=== PATIENT | male | born 1995 | race Caucasian/White ===

== ENCOUNTER 2017-07-09 17:43 | Observation (INO) | payer OTHER ==
[~2017-07-09] VITALS: Ht 172.7 cm; Wt 100.0 kg
[2017-07-09 17:50] VITALS: TEMP 98.4
[2017-07-09 17:55] VITALS: BP 143/80; PULSE 80; RESP 16; O2SAT 100
--- NOTE | 2017-07-09 18:01 | PD ---
HPI Chief Complaint: Fall Time Seen by Provider: 17:54 Travel History International Travel<30 days: No Contact w/Intl Traveler<30days: No Traveled to known affect area: No History of Present Illness HPI Patient was emergency department by EMS after falling approximately 8 feet off a roof landing on his left forearm. Patient complaining of pain in his left forearm that is worse with movement and palpation. Patient received 8 mg of morphine in route that seemed to help with the pain some. Pain radiates proximally. Describes pain as aching throbbing-like in nature. Patient is he feels as though there is something moving in there when he tries to move anything distally. Patient is right-hand dominant. Patient denies hitting his head, neck pain, loss of consciousness, chest pain, shortness of breath, low back pain, or lower extremity pain. PFSH Past Medical History Medical History: Denies Significant Hx Tetanus Vaccination: Unknown Influenza Vaccination: No Past Surgical History Surgical History: No Previous Surgery Social History Alcohol Use: Yes (social) Tobacco Use: No Substance Use: No Allergies-Medications (Allergen,Severity, Reaction): Coded Allergies: No Known Allergies (Unverified , 07/09/17) Reported Meds & Prescriptions Reported Meds & Active Scripts Active [place] (Hydrocodone-Acetaminophen) 5 Mg-325 Mg Tab 1 Tab PO Q4H PRN Review of Systems Except as stated in HPI: all other systems reviewed are Neg Physical Exam Narrative GENERAL: Well-developed, overly nourished, in no acute distress, and non-ill appearing. SKIN: Focused skin assessment warm and dry. HEAD: Atraumatic. Normocephalic. EYES: Pupils equal and round. EOMI. No scleral icterus. No injection or drainage. ENT: No nasal bleeding or discharge. Mucous membranes pink and moist. NECK: Trachea midline. No tenderness crepitus over midline cervical spine.. Supple. No nuclear rigidity. CARDIOVASCULAR: Regular rate and rhythm. No murmur appreciated. Radial pulses 2+, intact, equal bilaterally. Capillary refill less than 2 seconds. RESPIRATORY: No accessory muscle use. No respiratory distress. Clear to auscultation. Breath sounds equal bilaterally. No chest wall tenderness. No ecchymosis noted. GASTROINTESTINAL: Abdomen soft, non-tender, nondistended, and no guarding. Hepatic and splenic margins not palpable. Normal bowel sounds x4. No pulsatile mass. No ecchymosis noted. MUSCULOSKELETAL: Obvious deformity left forearm neurovascular intact distally.. No clubbing. No cyanosis. No edema. Decreased range of motion left upper extremity secondary to pain and obvious deformity. No tenderness or crepitus over midline line of the spinal column. NEUROLOGICAL: Awake and alert. No obvious cranial nerve deficits. Motor grossly within normal limits. Normal speech. PSYCHIATRIC: Appropriate mood and affect; insight and judgment normal. Data Data Last Documented VS Vital Signs Date Time Temp Pulse Resp B/P (MAP) Pulse Ox O2 Delivery O2 Flow Rate FiO2 07/09/17 17:55 80 16 143/80 (101) 100 Room Air 07/09/17 17:50 98.4 Orders Orders Forearm (2vws) (07/09/17 ) Splint Or Brace Apply/Monitor (07/09/17 18:42) [employer] Request For Service (07/09/17 18:42) Morphine Inj (Morphine Inj) (07/09/17 18:45) Forearm (2vws) (07/09/17 ) Consult Orthopedic (07/09/17 ) Admit Order (Ed Use Only) (07/09/17 20:01) MDM Medical Decision Making Medical Screen Exam Complete: Yes Emergency Medical Condition: Yes Interpretation(s) Last Impressions Radius/Ulna X-Ray 07/09/17 0000 Signed Impressions: CONCLUSION: There are displaced fractures through the shafts of the radius and ulna. Differential Diagnosis Fracture, sprain, contusion Narrative Course Patient was seen and examined. IV was established patient placed on cardiac monitoring. Initial radiological studies were ordered. Patient was seen and evaluated by Dr. Baron, who is in agreement plan of care and disposition. After getting x-ray. Splint was placed by [employer] reports trying to manipulate fracture and repeat x-ray was ordered. Discussed patient with orthopedic, who wants patient admitted to medicine for surgery tomorrow. Discussed patient with hospitalist was agreeable to admit the patient. Discussed all findings and plan of care with patient who is agreeable for admission. All questions were answered. Patient remained stable throughout ED course. Patient reports improvement of pain status post splint placement. Physician Communication Physician Communication [address] Florian, orthopedic on-call, who recommends admitting to medicine, n.p.o. after midnight, for surgical intervention tomorrow. [address] Tyler, who is agreeable to admit the patient. Diagnosis Primary Impression: Left forearm fracture Qualified Codes: S52.92XA - Unspecified fracture of left forearm, initial encounter for closed fracture Admitting Information Admitting Physician Requests: Admit Scripts Hydrocodone-Acetaminophen ([place]) 5 Mg-325 Mg Tab 1 TAB PO Q4H Y for PAIN, #16 TAB 0 Refills Prov: Richard Baron MD 07/09/17 Condition: Stable Rony Pinto July 09, 2017 18:01
[2017-07-09] MEDS ORDERED: NORC5TAB PO (18:44)
[2017-07-09] MEDS ORDERED: MORPHINE SULFATE 4 MG/ML INJ IV PUSH ONE (18:45)
--- NOTE | 2017-07-09 18:53 | RADRPT ---
EXAM DATE: 07/09/2017 6:41 PM EDT AGE/SEX: 22 years / Male INDICATIONS: Pain post fall. CLINICAL DATA: This is the patient's initial encounter. Patient reports that signs and symptoms have been present for 1 day and indicates a pain score of 10/10. MEDICAL/SURGICAL HISTORY: None. None. COMPARISON: No prior [facility] exams available for comparison. FINDINGS: There are displaced fractures of the shaft of both the radius and ulna. The fracture through the ulna r appears to be by approximately 1.7 cm. No definite joint dislocation is seen at the wrist or elbow. CONCLUSION: There are displaced fractures through the shafts of the radius and ulna. Electronically signed by: Armaan Velazquez MD 07/09/2017 6:52 PM EDT
--- NOTE | 2017-07-09 20:24 | RADRPT ---
EXAM DATE: 07/09/2017 8:18 PM EDT AGE/SEX: 22 years / Male INDICATIONS: Post reduction left forearm. CLINICAL DATA: This is the patient's subsequent encounter. Patient reports that signs and symptoms h ave been present for 1 day and indicates a pain score of 8/10. MEDICAL/SURGICAL HISTORY: None. None. COMPARISON: [facility] [place] FOREARM LEFT (2VWS), 07/09/2017. . FINDINGS: Patient status post closed reduction of the previously noted fractures involving the radius and ulna. There appears to be some mild improvement in the alignment of the fractures involving the radius and ulna. There continues to be displacement of the fracture involving the proximal radius. There is now overlying cast material place obscuring some bony detail. CONCLUSION: Status post closed reduction of patient's previously known fractures involving the radius and ulna. M ild improvement compared to the prior exam. Electronically signed by: Armaan Velazquez MD 07/09/2017 8:23 PM EDT
[2017-07-09 20:38] VITALS: BP 134/67; PULSE 75
[2017-07-09] MEDS ORDERED: LACTULOSE SYRUP 20 GM/30 ML CUP PO PRN (22:00)
[2017-07-09] MEDS ORDERED: MAGNESIUM HYDROXIDE SUSP 30 ML CUP PO PRN (22:00)
[2017-07-09] MEDS ORDERED: SODIUM CHLORIDE 0.9% FLUSH 10 ML FLUSH IV FLUSH PRN (22:00)
[2017-07-09] MEDS ORDERED: ACETAMINOPHEN 325 MG TAB PO PRN (22:00)
[2017-07-09] MEDS ORDERED: NALOXONE HCL 0.4 MG/ML AMP IV PUSH PRN (22:00)
[2017-07-09] MEDS ORDERED: BISACODYL 10 MG SUPP RECTAL PRN (22:00)
[2017-07-09] MEDS ORDERED: SENNOSIDES 8.6 MG TAB PO PRN (22:00)
--- NOTE | 2017-07-09 22:03 | HHI.HP ---
[facility] Service [facility] Primary Care Physician No Primary Care Physician Admission Diagnosis Left forearm fracture Diagnoses: Travel History International Travel<30 Days: No Contact w/Intl Traveler <30 Da: No Traveled to Known Affected Are: No History of Present Illness 22-year-old male with no significant past medical history presents the emergency department after falling off a roof. The patient reports he was working on his roof earlier today when he fell onto his left arm and felt a pop followed by severe pain. The patient denies any loss of consciousness or other injuries sustained during the fall. He denies chest pain or shortness of breath. No nausea/vomiting/diarrhea. No abdominal pain. Review of Systems Except as stated in HPI: all other systems reviewed are Neg Past Family Social History Past Medical History None Past Surgical History None Reported Medications Reported Meds & Active Scripts Active Allergies: Coded Allergies: No Known Allergies (Unverified , 07/09/17) Family History Negative for CAD/DM Social History Occasional alcohol. Denies tobacco and illicit drugs Physical Exam Vital Signs Vital Signs Date Time Temp Pulse Resp B/P (MAP) Pulse Ox O2 Delivery O2 Flow Rate FiO2 07/09/17 20:38 75 134/67 (89) 07/09/17 17:55 80 16 143/80 (101) 100 Room Air 07/09/17 17:50 98.4 Physical Exam GENERAL: male sitting up in bed SKIN: No rashes, ecchymoses or lesions. Cool and dry. HEAD: Atraumatic. Normocephalic. No temporal or scalp tenderness. EYES: Pupils equal round and reactive. Extraocular motions intact. No scleral icterus. No injection or drainage. ENT: Nose without bleeding, purulent drainage or septal hematoma. Throat without erythema, tonsillar hypertrophy or exudate. Uvula midline. Airway patent. NECK: Trachea midline. No JVD or lymphadenopathy. Supple, nontender, no meningeal signs. CARDIOVASCULAR: Regular rate and rhythm without murmurs, gallops, or rubs. RESPIRATORY: Clear to auscultation. Breath sounds equal bilaterally. No wheezes , rales, or rhonchi. GASTROINTESTINAL: Abdomen soft, non-tender, nondistended. No hepato-splenomegaly , or palpable masses. No guarding. MUSCULOSKELETAL: Extremities without clubbing, cyanosis, or edema. Left hand neurovascularly intact with brisk capillary refill. Left upper extremity splinted. NEUROLOGICAL: Awake and alert. Cranial nerves II through XII intact. Motor and sensory grossly within normal limits. Normal speech. Caprini VTE Risk Assessment Caprini VTE Risk Assessment: No/Low Risk (score <= 1) Caprini Risk Assessment Model Point Value = 1 Point Value = 2 Point Value = 3 Point Value = 5 Age 41-60 Minor surgery BMI > 25 kg/m2 Swollen legs Varicose veins or History of unexplained or recurrent spontaneous Oral contraceptives or hormone replacement Sepsis (< 1 month) Serious lung disease, including pneumonia (< 1 month) Abnormal pulmonary function Acute myocardial infarction Congestive heart failure (< 1 month) History of inflammatory bowel disease Medical patient at bed rest Age 61-74 Arthroscopic surgery Major open surgery (> 45 min) Laparoscopic surgery (> 45 min) Malignancy Confined to bed (> 72 hours) Immobilizing plaster cast Central venous access Age >= 75 History of VTE Family history of VTE Factor V Leiden Prothrombin [id number] Lupus anticoagulant Anticardiolipin antibodies Elevated serum homocysteine Heparin-induced thrombocytopenia Other congenital or acquired thrombophilia Stroke (< 1 month) Elective arthroplasty Hip, pelvis, or leg fracture Acute spinal cord injury (< 1 month) Prophylaxis Regimen Total Risk Factor Score Risk Level Prophylaxis Regimen 0-1 Low Early ambulation 2 Moderate Order ONE of the following: *Sequential Compression Device (SCD) *Heparin 5000 units SQ BID 3-4 Higher Order ONE of the following medications: *Heparin 5000 units SQ TID *Enoxaparin/Lovenox 40 mg SQ daily (WT < 150 kg, CrCl > 30 mL/min) *Enoxaparin/Lovenox 30 mg SQ daily (WT < 150 kg, CrCl > 10-29 mL/min) *Enoxaparin/Lovenox 30 mg SQ BID (WT < 150 kg, CrCl > 30 mL/min) AND/OR *Sequential Compression Device (SCD) 5 or more Highest Order ONE of the following medications: *Heparin 5000 units SQ TID (Preferred with Epidurals) *Enoxaparin/Lovenox 40 mg SQ daily (WT < 150 kg, CrCl > 30 mL/min) *Enoxaparin/Lovenox 30 mg SQ daily (WT < 150 kg, CrCl > 10-29 mL/min) *Enoxaparin/Lovenox 30 mg SQ BID (WT < 150 kg, CrCl > 30 mL/min) AND *Sequential Compression Device (SCD) Assessment and Plan Assessment and Plan Assessment/plan: 1. Displaced fractures of the radius and ulna Orthopedic surgery consulted, appreciate recommendations Dilaudid for pain N.p.o. Monitor for signs of compartment syndrome FEN N.p.o. Electrolytes: Monitor and replete as needed NS at 100 cc/hour Physician Certification 2 Midnight Certification Type: Admission for Inpatient Services Order for Inpatient Services The services are ordered in accordance with Medicare regulations or non- Medicare payer requirements, as applicable. In the case of services not specified as inpatient-only, they are appropriately provided as inpatient services in accordance with the 2-midnight benchmark. Estimated LOS (days): 2 2 days is the estimated time the patient will need to remain in the hospital, assuming treatment plan goals are met and no additional complications. Post-Hospital Plan: Not yet determined Ting Tyler MD July 09, 2017 22:03
[2017-07-09] MEDS ORDERED: ONDANSETRON ODT 4 MG TAB PO PRN (22:15)
[2017-07-09] MEDS: HYDROmorphone HCL PF 2 MG/ML VIAL IV PUSH PRN (23:31)
[2017-07-09] MEDS: SODIUM CHLOR 0.9% 1000 ML INJ 1,000 ML IV SCH (23:31)
[2017-07-09] MEDS: SODIUM CHLORIDE 0.9% FLUSH 10 ML FLUSH IV FLUSH SCH (23:32)
[2017-07-10] VITALS: BP 137/75; PULSE 70; RESP 18; TEMP 98.5; O2SAT 97
[2017-07-10] MEDS: HYDROmorphone HCL PF 2 MG/ML VIAL IV PUSH PRN ×2 (02:39→06:16)
[2017-07-10 05:57] LABS: AUTOMATED NEUTROPHIL # 8.2 TH/MM3 (1.8-7.7); BASOPHIL % 0.3 % (0.0-2.0); EOSINOPHIL # 0.1 TH/MM3 (0-0.4); EOSINOPHIL % 0.8 % (0.0-4.0); HEMOGLOBIN 15.1 GM/DL (13.0-17.0); LYMPH % 22.1 % (9.0-44.0); LYMPHOCYTE # 2.8 TH/MM3 (1.0-4.8); MEAN CELL VOLUME 79.6 FL (80.0-100.0); MEAN CORPUSCULAR HEMOGLOBIN 26.8 PG (27.0-34.0); MEAN CORPUSCULAR HGB CONC 33.7 % (32.0-36.0); MEAN PLATELET VOLUME 8.4 FL (7.0-11.0); MONO % 11.1 % (0.0-8.0); MONOCYTE # 1.4 TH/MM3 (0-0.9); NEUT % 65.7 % (16.0-70.0); PLATELET COUNT 306 TH/MM3 (150-450); RED BLOOD COUNT 5.65 MIL/MM3 (4.50-5.90); RED CELL DISTRIBUTION WIDTH 14.2 % (11.6-17.2); WHITE BLOOD COUNT 12.5 TH/MM3 (4.0-11.0)
[2017-07-10 06:17] LABS: BICARBONATE 24.8 MEQ/L (21.0-32.0); CALCIUM 8.5 MG/DL (8.5-10.1); CREATININE 0.8 MG/DL (0.60-1.30)
[2017-07-10] MEDS: SODIUM CHLORIDE 0.9% FLUSH 10 ML FLUSH IV FLUSH SCH (07:31)
[2017-07-10] MEDS: SODIUM CHLOR 0.9% 1000 ML INJ 1,000 ML IV SCH (07:56)
[2017-07-10 08:00] VITALS: BP 144/85; PULSE 67; RESP 15; TEMP 97.7; O2SAT 96
[2017-07-10] MEDS ORDERED: SENN187 PO (08:50)
[2017-07-10] MEDS ORDERED: NORC5TAB PO (08:50)
--- NOTE | 2017-07-10 08:50 | HHI.DS ---
Discharge Summary Admission Date July 09, 2017 at 20:03 Discharge Date: July 10, 2017 Admitting Diagnosis Left forearm fracture (1) Left arm pain ICD Code: M79.602 - Pain in left arm (2) Fracture of left radius and ulna ICD Code: S52.92XA - Unspecified fracture of left forearm, initial encounter for closed fracture; S52.202A - Unspecified fracture of shaft of left ulna, initial encounter for closed fracture Procedures Displaced left radius and ulna shaft fractures S/P Open reduction internal fixation left radius and ulna shaft fractures by Dr Valle 07/10/17 Brief History - From Admission 22-year-old male with no significant past medical history presents the emergency department after falling off a roof. The patient reports he was working on his roof earlier today when he fell onto his left arm and felt a pop followed by severe pain. The patient denies any loss of consciousness or other injuries sustained during the fall. He denies chest pain or shortness of breath. No nausea/vomiting/diarrhea. No abdominal pain. CBC/BMP: 07/10/17 0510 07/10/17 0510 Significant Findings Laboratory Tests Test 07/10/17 05:10 White Blood Count 12.5 TH/MM3 (4.0-11.0) Mean Corpuscular Volume 79.6 FL (80.0-100.0) Mean Corpuscular Hemoglobin 26.8 PG (27.0-34.0) Monocytes (%) (Auto) 11.1 % (0.0-8.0) Neutrophils # (Auto) 8.2 TH/MM3 (1.8-7.7) Monocytes # (Auto) 1.4 TH/MM3 (0-0.9) Imaging Last Impressions Radius/Ulna X-Ray 07/10/17 0000 Signed Impressions: CONCLUSION: Fluoroscopic images left forearm during plate and screws along the radius and u deli manager near anatomic. PE at Discharge GENERAL: male in nad CARDIOVASCULAR: Regular rate and rhythm without murmurs, gallops, or rubs. RESPIRATORY: Clear to auscultation. Breath sounds equal bilaterally. No wheezes , rales, or rhonchi. GASTROINTESTINAL: Abdomen soft, non-tender, nondistended. No hepato-splenomegaly , or palpable masses. No guarding. MUSCULOSKELETAL: Left upper extremity in sling s/p surgery. Extremities without clubbing, cyanosis, or edema. Left hand neurovascularly intact with brisk capillary refill. NEUROLOGICAL: Awake and alert. Cranial nerves II through XII intact. Motor and sensory grossly within normal limits. Normal speech. Pt update on day of discharge seen in pacu. Sleepy. Doesn;t appear in acute distress. Hospital Course Displaced left radius and ulna shaft fractures S/P Open reduction internal fixation left radius and ulna shaft fractures by Dr Valle 07/10/17 Management per surgeon Improved. DC home in stable condition to followup as OP with PCP and ortho Pt Condition on Discharge: Stable Discharge Disposition: Discharge Home Discharge Time: > 30 minutes Discharge Instructions DIET: Follow Instructions for: As Tolerated, No Restrictions Activities you can perform: Non Weight Bearing Other Activity Instructions: affected limb NWB Follow up Referrals: Orthopedics - 1 Week with Jarrod Valle MD PCP Follow-up - 2-3 Days with Family [facility] Source New Medications: Hydrocodone-Acetaminophen ([place]) 5 Mg-325 Mg Tab 1 TAB PO Q6H PRN for PAIN, #10 TAB 0 Refills Hydrocodone-Acetaminophen ([place]) 10-325 Mg Tab 1 TAB PO Q4H PRN for PAIN, #50 TAB 0 Refills Sennosides (Senna-Lax) 8.6 Mg Tab 17.2 MG PO Q12H PRN for Moderate constipation, #60 TAB Helen Garcia MD July 10, 2017 08:50
[2017-07-10] MEDS ORDERED: GENTAMICIN SULFATE 80 MG/2 ML VIAL ONE (08:53)
[2017-07-10] MEDS ORDERED: ceFAZolin INJ 1,000 MG VIAL ONE (08:53)
[2017-07-10] MEDS ORDERED: VANCOMYCIN HCL 1000 MG VIAL ONE (08:53)
[2017-07-10] MEDS ORDERED: ACETAMINOPHEN 1000 MG/100 ML 100 ML IV ONE (10:27)
[2017-07-10] MEDS ORDERED: METOCLOPRAMIDE HCL 10 MG/2 ML VIAL ONE (10:28)
[2017-07-10] MEDS ORDERED: MIDAZOLAM HCL 2 MG/2 ML VIAL ONE (10:28)
[2017-07-10] MEDS ORDERED: FAMOTIDINE 20 MG/2 ML VIAL ONE (10:28)
--- NOTE | 2017-07-10 11:21 | MB ---
cc: Jarrod Valle MD DATE: 07/10/2017 REASON FOR CONSULTATION: Left radius and ulna shaft fractures. CONSULTING PHYSICIAN: Dr. Tyler. HISTORY OF PRESENT ILLNESS: Louie is a 22-year-old male who was helping with some roof repairs. He lost his balance and fell. He landed on his left arm. He had immediate left arm pain and deformity. He had no dizziness, syncope, loss of consciousness. His only complaint is the left arm. He presented to the Emergency Room where x-rays revealed a displaced radial and ulnar shaft fractures. He is currently awake and alert on the orthopedic floor. He is in no acute distress. PAST MEDICAL HISTORY: Illnesses: None. ALLERGIES: NONE. MEDICATIONS: None. SURGERIES: None. FAMILY HISTORY: Noncontributory. He denies any known familial medical problems. SOCIAL HISTORY: The patient denies tobacco or drug use. He drinks alcohol occasionally. REVIEW OF SYSTEMS: The patient denies headache, visual changes, neck pain, chest pain, shortness of breath, abdominal pain, nausea, vomiting, recent weight loss, fevers, chills or numbness or tingling to extremities. He complains of left arm pain. The pain is worse with movement. LABORATORY DATA: The patient has a white blood cell count of 12.5, hematocrit of 45.0, platelet count of 306. Potassium is 3.7, BUN is 10, creatinine 0.80. PHYSICAL EXAMINATION: GENERAL: The patient is a pleasant 22-year-old male in no acute distress. He is awake and alert. He appears well-developed and well-nourished. VITAL SIGNS: Temperature 97.7, pulse 67, respirations 15, blood pressure 144/85, O2 saturation 96% on room air. HEENT: Head: The patient is normocephalic. Pupils are equal. NECK: Soft, nontender. The trachea is in the midline. ABDOMEN: Soft, nontender, nondistended. EXTREMITIES: Examination of the left arm reveals no tenderness around his shoulder. Examination of his arm reveals mild swelling of the forearm. He has some deformity of the forearm. Radial pulses palpable. He has intact sensation in the radial, ulnar, and median nerve distributions. He has minimal pain with passive range of motion of his fingers. Radial pulses palpable. Examination of right arm reveals no pain with shoulder, elbow and wrist motion. Skin is intact. Radial pulses palpable. Sensation intact to all fingers. Examination of bilateral lower extremities reveals no pain with hip, knee or ankle motion. Skin is intact. Dorsalis pedis pulses are palpable. IMPRESSION: 1. Fall off of roof. 2. Displaced left radius and ulnar shaft fractures. PLAN: Treatment options were discussed with the patient. At this point, I would recommend open reduction, internal fixation of left radius and ulna fractures. Risks of surgery include bleeding, infection, injuries to arteries, nerves and blood vessels, loss of motion of forearm and hand, weakness and numbness of the hand, compartment syndrome, painful hardware, as well as medical complications including blood clot, stroke, heart attack and . All questions were answered. I will plan on surgery today. I would encourage the patient to take calcium and vitamin D postoperatively. He will also need physical therapy to work on gentle motion. A mid-level provider in my office, nurse practitioner or PA, may see this patient on a follow-up basis and continue to implement the objective of this plan including: Starting or adjusting medications, injections of muscle, tendon, bursa or joints, cast application, orthotic or brace application, physical therapy, further radiographic studies including x-ray, MRI, CT, ultrasounds or bone scan, vascular studies, neurologic studies, or other specialist consultations, and proceeding with surgical management as appropriate. MD FREDA Thorne/CRAIG , 10:55 AM , 11:20 AM
[2017-07-10] MEDS ORDERED: LIDOCAINE HCL 1% PF 5 ML SYRINGE OTHER ONE (12:00)
[2017-07-10] MEDS ORDERED: DEXAMETHASONE SOD PHOS 4 MG/ML VIAL IV ONE (12:00)
[2017-07-10] MEDS ORDERED: PROPOFOL 200 MG/20 ML AMP IV ONE (12:00)
[2017-07-10] MEDS ORDERED: PHENYLEPH/NS 1000 MCG/10 ML SYR IV ONE (12:00)
[2017-07-10] MEDS ORDERED: LACTATED RINGER'S 1000 ML INJ 1,000 ML IV ONE (12:00)
[2017-07-10] MEDS ORDERED: KETOROLAC TROMETHAMINE 30 MG/ML (IVP) VIAL IV PUSH ONE (12:00)
[2017-07-10] MEDS ORDERED: ePHEDrine/NS 25 MG/5 ML SYRINGE IV ONE (12:00)
[2017-07-10] MEDS ORDERED: HYDR-3366 PO (12:04)
--- NOTE | 2017-07-10 12:06 | PD.OP ---
cc: Jarrod Villavicencio MD Operative Report Date of Surgery: July 10, 2017 Preoperative Diagnosis: Displaced left radius and ulna shaft fractures Postoperative Diagnosis: Procedure: Open reduction internal fixation left radius and ulna shaft fractures Surgeon: Jarrod Villavicencio Shipping Supervisor(s): MANJU Coon PA-C The surgical procedure was assisted by my physician assistant foreman. My P.A. presence was necessary throughout this case for the manipulation and positioning of the surgical extremity. My P.A. was assisting me throughout the duration of this procedure. The skill set of a physician assistant foreman was medically necessary to complete this procedure. During the surgical case the surgical corsetier was working at the back table and the physician assistant foreman was directly assisting me. Operation and Findings: Implants used : ITS Patient was seen and examined preoperatively. Patient was found to have displaced left radius and ulna shaft fractures. Informed consent was obtained and operative site was marked. Patient was brought to operating room and given IV sedation and general anesthesia. Timeout procedure was performed. Operative extremity was prepped and draped with alcohol followed by Hibiclens and draped in usual sterile fashion. IV antibiotics were administered prior to incision. Procedure began with a 5 inch incision over the subcutaneous border of the ulna. Fascia was elevated off of the bone. Fracture site was visualized. Fracture tenaculums were used to reduce fracture. Fracture keyed into anatomic alignment. A plate was placed across the fracture. Plate was provisionally held to bone with K wires. A 3.5 cortical lag screw was placed through the plate to compress fracture. Additional 3.5 cortical screws were used to compress plate to bone. Multiple screws were placed in each side of fracture. K wires were removed. Fluoroscopy confirmed excellent alignment of fracture with well-placed hardware. Incision was now closed with #1 Vicryl, 3-0 Vicryl, and suzy. Next attention was turned to the radius. A 5 inch incision was made over the volar aspect of the forearm. A standard volar approach was utilized. The interval between the radial artery and superficial radial nerve was identified. Neurovascular structures were protected. Soft tissue was elevated off the bone. Fracture site was visualized. Fracture fragments were carefully reduced. Each fracture fragment keyed in anatomic alignment. K wires were used to hold provisional fixation. A plate was contoured to fit the radius. Plate was provisionally held with K wires. 3.5 cortical screws were used to compress plate to bone. Multiple screws were placed in each side of fracture. K wires were removed. Final fluoroscopy revealed excellent of fracture with well-placed hardware. Sterile dressings were applied with Xeroform 4 x 4 soft roll and Bentley wrap. Patient was awakened and transferred to recovery room in stable condition. Forearm compartments were soft and compressible. Jarrod Villavicencio MD July 10, 2017 12:06
[2017-07-10] MEDS ORDERED: ACETAMINOPHEN/HYDROcodone 325 MG/10 MG TAB PO PRN (12:15)
[2017-07-10] MEDS ORDERED: DO NOT ADM ANY ANTICOAGULANT DRUGS PRN (12:26)
[2017-07-10] MEDS ORDERED: ONDANSETRON HCL 4 MG/2 ML VIAL ONE (12:43)
[2017-07-10 13:28] VITALS: BP 136/75; PULSE 83; RESP 17; TEMP 97.5; O2SAT 96
[2017-07-10] MEDS ORDERED: MORPHINE SULFATE 4 MG/ML INJ IV PUSH PRN (14:00)
--- NOTE | 2017-07-10 15:19 | RADRPT ---
EXAM DATE: 07/10/2017 3:17 PM EDT AGE/SEX: 22 years / Male INDICATIONS: ORIF left forearm fracture. CLINICAL DATA: This is the patient's subsequent encounter. Patient reports that signs and symptoms h ave been present for 2 days and indicates a pain score of Nonresponsive. MEDICAL/SURGICAL HISTORY: . Unobtainable. . Unobtainable. COMPARISON: No prior [facility] exams available for comparison. CONCLUSION: Fluoroscopic images left forearm during plate and screws along the radius and ulna near anatomic. Electronically signed by: Anastacio Wong MD 07/10/2017 3:18 PM EDT
[2017-07-10] MEDS ORDERED: KETOROLAC TROMETHAMINE 60 MG/2 ML (IM) VIAL IM SCH (18:00)
== END 2017-07-10 15:43 | disposition home or self-care (01) ==
LOC: NEPE 17:43 → NEDA 20:03 → INTOOBSV 20:03 → N07A 22:45
PROVIDERS: ADMIT Hospitalist; ATTEND Hospitalist
DX: S52.302A Unspecified fracture of shaft of left radius, initial encounter for closed fracture (principal); S52.202A Unspecified fracture of shaft of left ulna, initial encounter for closed fracture; M79.632 Pain in left forearm; W13.2XXA Fall from, out of or through roof, initial encounter
CPT/HCPCS: 01830; 25575; 29125; 73090; 76000; 80048; 85025; 96374; 99285; C1713; G0378; J0131; J0690; J1100; J1170; J1580; J1885; J2250; J2270; J2370; J2405; J2765; J3010; J3370; J7030; J7120